=== PATIENT | male | born 1990 | race Hispanic/Latino ===

== ENCOUNTER 2019-05-31 22:27 | Emergency (ER) | payer OTHER ==
[2019-05-31] MEDS ORDERED: DEXAMETHASONE 4 MG TAB ONE (23:25)
== END 2019-05-31 23:32 | disposition home or self-care (01) ==
LOC: EDH 22:27 → EDBD 22:27 → EDH 23:32
DX: L29.9 Pruritus, unspecified (principal)
CPT/HCPCS: 99282; J8540